=== PATIENT | female | born 1960 | race African-American/Black ===

== ENCOUNTER 2016-11-08 04:53 | Emergency (ER) | payer OTHER ==
[~2016-11-08] VITALS: Ht 157.5 cm; Wt 106.0 kg
[~2016-11-08 04:53] MED LIST: NO HOME MEDS
[2016-11-08 05:01] VITALS: BP 116/72
== END 2016-11-08 07:38 | disposition home or self-care (01) ==
LOC: ER 05:00
DX: M19.90 Unspecified osteoarthritis, unspecified site (principal); F17.200 Nicotine dependence, unspecified, uncomplicated
CPT/HCPCS: 99283